=== PATIENT | female | born 1990 | race Caucasian/White ===

== ENCOUNTER → 2023-10-06 | Emergency (ER) | payer OTHER ==
--- OUTSIDE RECORDS SUMMARY | 2023-10-06 18:21 | XMS REPORT | Continuity of Care Document ---
Author Name Unknown Address [address] [facility] [address] [place] [address] [facility] Address [address] [facility] 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 Phone Pcp, Patient Does Not Have A Primary Care Physic robe Chadwick Cosme Attending Clinician [phone] Nasim Parker Attending Clinician NASIM DEL VALLE Attending Clinician Unavailable Provider, [facility] Attending Clinician Un available Payers Payer Name Policy Type Policy Number Effective Date Expirati on Date Source Problems Condition Name Condition Details Condition Category Status Onset Date Resolution Date Last Treatment Date Treating Clinician Comments Source No known active problems No known active problems Disease [facility] Allergies, Adverse Reactions, Alerts Allergy Name Allergy Type Status Severity Reaction(s) Onset Date Inactive Date Treating Clinician Comments Source NO KNOWN ALLERGIE S Drug Class Active [facility] Social History Social Habit Start Date Stop Date Quantity Comments Source History of tobacco use Cigarette Smoker [facility] Exposure to SARS-CoV-2 (event) Not sure [facility] Alcohol intake 2021-07-07 00:00:00 2021-07-07 00:00:00 Current non-drinker of alcohol (finding) [facility] Tobacco use and exposure 2013-04-21 00:00:00 2013-04-21 00:00:00 Never used [facility] Tobacco Comment 2013-04-21 00:00:00 2013-04-21 00:00:00 0-3 cigarettes a day, trying to stop due to . [facility] Sex Ass[birth year] At 1990 00:00:00 1990 00:00:00 [facility] Smoking Status Start Date Stop Date Source Current some day smoker 2013-04-21 00:00:00 [facility] Medications Ordered Medication Name Filled Medication Name Start Date Stop Date Current Medication? Ordering Clinician Indication Dosage Frequency Signature (SIG) Comments Components Source Nitrofurant oin&Nit. Macrocryst (MACROBID) 100 mg capsule 07-07 00:00: 00 07-15 04:59 :00 No [id number] 100mg Take 1 capsule by mouth 2 (two) times daily for 7 days. [facility] amoxicillin 500 mg capsule 10-23 00:00: 00 11-03 05:59 :00 No [id number] 500mg Take 1 capsule by mouth 2 (two) times daily for 10 days. [facility] acute hospital Nitrofurant oin&Nit. Macrocryst (MACROBID) 100 mg capsule 04-24 00:00: 00 Yes 100mg Take 1 Cap by mouth 2 (two) times daily. [facility] Nitrofurant oin&Nit. Macrocryst (MACROBID) 100 mg capsule 04-24 00:00: 00 Yes 100mg Take 1 Cap by mouth 2 (two) times daily. [facility] acute hospital multivitami n ( VITAMIN) tablet 04-21 00:00: 00 Yes [id number] 1{tbl} Take 1 Tab by mouth daily. [facility] acute hospital multivitami n ( VITAMIN) tablet 04-21 00:00: 00 Yes [id number] 1{tbl} Take 1 Tab by mouth daily. [facility] acute [facility] Vital Signs Vital Name Observation Time Observation Value Comments Chris escobar Systolic blood pressure 2021-07-07 23:33:00 116 mm[Hg] [facility] Diastolic blood pressure 2021-07-07 23:33:00 71 mm[Hg] [facility] Heart rate 2021-07-07 23:33:00 94 /min [facility] Body temperature 2021-07-07 23:33:00 36.72 Amee [facility] Respiratory rate 2021-07-07 23:33:00 18 /min [facility] Body height 2021-07-07 23:33:00 160 cm [facility] Body weight 2021-07-07 23:33:00 73.483 kg [facility] BMI 2021-07-07 23:33:00 28.70 kg/m2 [facility] Oxygen saturation in Arterial blood by Pulse oximetry 2021-07-07 23:33:00 98 /min [facility] Systolic blood pressure 2020-10-23 17:02:00 106 mm[Hg] [facility] Diastolic blood pressure 2020-10-23 17:02:00 76 mm[Hg] [facility] Heart rate 2020-10-23 17:02:00 70 [facility] 2020-10-23 17:02:00 36.61 Amee [facility] Respiratory rate 2020-10-23 17:02:00 18 /min [facility] Oxygen saturation in Arterial blood by Pulse oximetry 2020-10-23 17:02:00 98 /min [facility] Procedures Procedure Date / Time Performed Performing Clinicia n Source POCT TEST 2021-07-07 23:45:00 Chadwick Read [facility] POCT GRP A STREP (MOLECULAR) 2020-10-23 17:00:00 Nasim Del Valle [facility] Encounters Start Date/Time End Date/Time Encounter Type Admission Type Attending Clinicians Care Facility Care Department Encounter ID Source 2021-07-07 18:18:31 2021-07-07 18:38:31 Urgent Care Chadwick Read Cathy [facility] [id number] General acute hospital 2021-07-07 18:20:00 2021-07-07 18:20:00 Outpatient R [facility] [id number] General acute hospital 2021-07-07 18:20:00 2021-07-07 18:20:00 Outpatient Chiqui [facility] [id number] General acute hospital 2020-10-23 10:55:30 2020-10-23 11:48:56 Urgent Care Provider, [facility] Urgent Care [facility] [id number] General acute hospital 2020-10-23 10:40:00 2020-10-23 10:40:00 Outpatient Chiqui [facility] [id number] General acute hospital Results Test Description Test Time Test Comments Results Result Co mments [facility]2020-10-23 17:11:00* Test Item Value Reference Range Interpretation Comme nts POCT GP A STREP (test code = 56525-0) Positive Negative - Negative Lab Interpretation (test cod e = [id number]) Abnormal [facility]
--- NOTE | 2023-10-06 18:58 | EDPHYS ---
Physician Documentation [facility] Name: Terra Swan Age: 32 yrs Sex: Female : 1990 Arrival Date: 10/06/2023 Time: 18:18 Bed 10 Private MD: ED Physician Mathew Barr HPI: 10/06 19:17 This 32 yrs old Female presents to ER via Ambulatory with complaints of Knee Pain. sb4 19:18 The patient presents with an injury, pain, that is acute, swelling. The complaints sb4 affect the right knee. Context: The problem was sustained at an unknown site, resulted from a mis-step, the patient can fully bear weight, uses a brace, Problem is a result from a previous injury: Yes. Injury was sustained 2019. Onset: The symptoms/episode began/occurred yesterday. Modifying factors: The symptoms are alleviated by remaining still, the symptoms are aggravated by weight bearing, bending knee. Associated signs and symptoms: The patient has no apparent associated signs or symptoms, Pertinent negatives calf tenderness, numbness, tingling. Treatment prior to arrival includes: no previous treatment. Severity of symptoms: At their worst the symptoms were mild, in the emergency department the symptoms are unchanged. The patient has not recently seen a physician. 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 - Social history:: Smoking status: Patient reports the use of cigarette tobacco products, Reported history of juuling and/or vaping. ROS: 19:18 Constitutional: Negative for fever, chills, and weight loss, sb4 19:18 MS/extremity: Positive for injury or acute deformity, pain, swelling, of the right knee, 19:18 All other systems are negative, Exam: 19:21 Constitutional: This is a well developed, well nourished patient who is awake, alert, sb4 and in no acute distress. Head/Face: Normocephalic, atraumatic. Eyes: Extra-ocular motions intact. Periorbital areas with no swelling, redness, or edema. Skin: Warm, dry with normal turgor. Normal color with no rashes, no lesions, and no evidence of cellulitis. Neuro: Awake and alert, GCS 15, oriented to person, place, time, and situation. Motor strength 5/5 in all extremities. Sensory grossly intact. 19:21 Musculoskeletal/extremity: Circulation is intact in all extremities. Pulses: are normal with no appreciated deficits, Perfusion: the extremity is normally perfused throughout, Sensation intact. Compartment Syndrome exam of affected extremity: is normal. no numbness, no tingling, no sensation deficit, no palor, no weak pulses, Joints: the right knee displays effusion, painful range of motion, swelling, Weight bearing: able to fully bear weight, Calves: are non-tender, have equal circumference, Vital Signs: 18:58 BP 128 / 90; Pulse 92; Resp 17; Pulse Ox 98% ; Weight 83.91 kg; Pain 5/10; ap3 19:30 BP 125 / 84; Pulse 86; Resp 16 S; Pulse Ox 99% on R/A; jw7 18:58 Pain Scale: Adult ap3 MDM: 18:37 Patient medically screened. sb4 19:21 Differential diagnosis: sprain, strain, meniscal injury, ligamentous injury. Data sb4 reviewed: vital signs, nurses notes, and as a result, I will discharge patient. Test considered but Not performed: CT: informed patient we could do xray or CT but it's unlikely we will be able to identify the root cause. she requested MRI, i told her that has to be scheduled on outpatient basis. i provided referrals to orthopedists. i offered analgesics, crutches, knee immobilizer but she refused. Administered Medications: No medications were administered Disposition Summary: 10/06/23 18:57 Discharge Ordered Notes: Location: Home sb4 Problem: new sb4 Symptoms: are unchanged sb4 Condition: Stable sb4 Diagnosis - Pain in right knee sb4 Followup: sb4 - With: Erick Gifford MD - When: As needed - Reason: Further diagnostic work-up, Recheck today's complaints, Re-evaluation by your physician Followup: sb4 - With: Rivera Ortiz MD - When: As needed - Reason: Further diagnostic work-up, Recheck today's complaints, Re-evaluation by your physician Followup: sb4 - With: Asaf Andrew MD - When: As needed - Reason: Further diagnostic work-up, Recheck today's complaints, Re-evaluation by your physician Discharge Instructions: - Discharge Summary Sheet sb4 - Musculoskeletal Pain sb4 - Knee Sprain, Adult, [id number] sb4 Forms: - Work release form jw7 - Medication Reconciliation Form sb4 - Thank You Letter sb4 - Antibiotic Education sb4 - Prescription Opioid Use sb4 - Patient Portal Instructions sb4 - Leadership Thank You Letter sb4 Signatures: Minerva Steven RN RN ap3 Gena Davis PAConstance RANGEL sb4
--- NOTE | 2023-10-06 19:49 | ER ---
Nurse's Notes [facility] Name: Terra Swan Age: 32 yrs Sex: Female : 1990 Arrival Date: 10/06/2023 Time: 18:18 Bed 10 Private MD: Diagnosis: Pain in right knee Presentation: 10/06 18:58 Chief complaint: Patient states: she injured her knee in december of 2019, and never ap3 followed up. patient states she went dancing last night, heard a "pop" and started having a warm pain in the right knee. patient reports pain to be a 5/10 at this time. Coronavirus screen: At this time, the client does not indicate any symptoms associated with coronavirus-19. Ebola Screen: No symptoms or risks identified at this time. Initial Sepsis Screen: Does the patient meet any 2 criteria? No. Patient's initial sepsis screen is negative. Does the patient have a suspected source of infection? No. Patient's initial sepsis screen is negative. Risk Assessment: Do you want to hurt yourself or someone else? Patient reports no desire to harm self or others. Onset of symptoms is unknown. 18:58 Method Of Arrival: Ambulatory ap3 18:58 Acuity: BELINDA 5 ap3 Triage Assessment: 18:59 General: Appears in no apparent distress. Behavior is calm, cooperative, appropriate ap3 for age. Pain: Complains of pain in right knee Pain currently is 5 out of 10 on a pain scale. Neuro: Level of Consciousness is awake, alert, obeys commands, Oriented to person, place, time, situation, Appropriate for age. Cardiovascular: Patient's skin is warm and dry. Respiratory: Airway is patent Respiratory effort is even, unlabored, Respiratory pattern is regular, symmetrical. Musculoskeletal: Reports pain in right knee. 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 - Social history:: Smoking status: Patient reports the use of cigarette tobacco products, Reported history of juuling and/or vaping. Screenin:00 [facility] ED Fall Risk Assessment (Adult) History of falling in the last 3 months, ap3 including since admission No falls in past 3 months (0 pts). Abuse screen: Denies threats or abuse. Nutritional screening: No deficits noted. Tuberculosis screening: No symptoms or risk factors identified. Assessment: 19:00 General: see triage assessment. jw7 19:46 Reassessment: Patient appears in no apparent distress at this time. Patient and/or jw7 family updated on plan of care and expected duration. Pain level reassessed. Patient is alert, oriented x 3, equal unlabored respirations, skin warm/dry/pink. Patient states symptoms have improved. Vital Signs: 18:58 BP 128 / 90; Pulse 92; Resp 17; Pulse Ox 98% ; Weight 83.91 kg; Pain 5/10; ap3 19:30 BP 125 / 84; Pulse 86; Resp 16 S; Pulse Ox 99% on R/A; jw7 18:58 Pain Scale: Adult ap3 ED Course: 18:25 Patient arrived in ED. ts1 18:26 [facility] sb4 18:26 Mathwe Barr MD is Attending Physician. sb4 18:57 Erick Gifford MD is Referral Physician. sb4 18:57 Rivera Ortiz MD is Referral Physician. sb4 18:57 Asaf Andrew MD is Referral Physician. sb4 18:59 Triage completed. ap3 19:00 Arm band placed on right wrist. ap3 19:00 Provided Education on: discharge instructions. ap3 19:00 No provider procedures requiring assistance completed. Patient did not have IV access ap3 during this emergency room visit. 19:01 Patient has correct armband on for positive identification. Call light in reach. Side ap3 rails up X 1. Adult w/ patient. Pulse ox on. NIBP on. Administered Medications: No medications were administered Medication: 19:01 VIS not applicable for this client. ap3 Outcome: 18:57 Discharge ordered by . sb4 19:00 Condition: good ap3 19:48 Discharged to home ambulatory, jw7 19:48 Condition: stable 19:48 Discharge instructions given to patient, 19:48 Patient left the ED. jw7 Signatures: Minerva Steven RN RN ap3 Hortencia Price RN RN jw7 Gena Davis PA-C PA-C sb4 Simpson, Tabitha, PAS PAS ts1
[2023-10-06 21:29] VITALS: BP 125/84; O2SAT 99
== END ==
LOC: ER 18:18
DX: M25.561 Pain in right knee (principal)
CPT/HCPCS: 99283

== ENCOUNTER 2024-01-15 12:59 | Day surgery (SDC) | payer OTHER ==
[2024-01-10 09:45] LABS: Absolute Basophils 0.2 K/uL (0-0.5); Absolute Eosinophils 0.4 K/uL (0-0.5); Absolute Lymphocytes (CBC) 5.4 K/uL (0.7-4.9); Absolute Monocytes 1.4 K/uL (0.1-1.3); Absolute Neutrophil 7.9 K/uL (1.8-8.0); Basophils % 1.1 % (0-1.3); Eosinophils % 2.9 % (0-4.4); Hematocrit 44.2 % (36.0-45.0); Hemoglobin 14.7 g/dL (12.0-15.0); Lymphocytes % 35.1 % (15.3-44.8); MCH 30.6 pg (27.0-35.0); MCHC 33.2 g/dL (32.0-36.0); MCV 92.1 fL (80-100); MPV 7.8 fL (7.6-11.3); Monocytes % 9.1 % (3.3-12.3); Neutrophils % 51.8 % (41.7-73.7); Platelets 331 thou/uL (152-406); RBC Red Blood Cell Count 4.79 M/uL (3.86-4.86); Red Cell Distribution Width 13.3 % (12.1-15.2)
[2024-01-15] MEDS ORDERED: MIDAZOLAM HCL 2 MG/2 ML INJ ONE (14:05)
[2024-01-15] MEDS ORDERED: KETOROLAC 30 MG/ML INJ ONE (14:05)
[2024-01-15] MEDS ORDERED: LIDOCAINE 1% MPF 5 ML VIAL ONE (14:05)
[2024-01-15] MEDS ORDERED: propofoL 200 MG/20 ML VIAL IV ONE (14:05)
[2024-01-15] MEDS ORDERED: ONDANSETRON 4 MG/2 ML VIAL ONE (14:05)
[2024-01-15] MEDS ORDERED: FENTANYL CITR 100 MCG/2 ML ONE ×2 (14:05→15:11)
[2024-01-15] MEDS: Ringers Lactate 1,000 ML IV ONE (14:48)
[2024-01-15] MEDS ORDERED: dexAMETHasone 4 MG/ML VIAL ONE (14:57)
[2024-01-15] MEDS: CEFAZOLIN SODIUM 1 GM/VIAL ONE (15:17)
[2024-01-15 16:45] LABS: Urine Specific Gravity/Preg 1.025 (1.005-1.030)
--- NOTE | 2024-01-15 16:51 | OP ---
Date of Procedure: 01/15/2024 Surgeon: Erick Gifford MD Preoperative Diagnosis: Right knee pain with mechanical symptoms probable meniscal tear or tears. Postoperative Diagnosis: Radial tear of the posterior aspect of the lateral meniscus. Procedure: Right knee arthroscopy with debridement of radial tear of the posterior aspect of the lat eral meniscus. Estimated Blood Loss: Less than 10 cc. Complications: There were no complications. Specimens: No pathology or specimens sent. Indications For Operation: Ms. Swan is a 43-year-old female who came to see me in my office with c omplaints of right knee pain. This failed to improve despite conservative measures and an MRI was do ne, which demonstrated a tear possibly of both the medial and lateral menisci and risks, benefits, an d alternatives to this procedure were discussed with the patient. She states she understands things as presented and wishes to proceed. Description Of Procedure: Patient was taken to the operating room, placed in supine position. Gener al anesthesia was easily obtained by the Anesthesia staff. Following this, well-padded tourniquet wa s placed on superior right thigh. It was not used throughout the case. Right lower extremity was th en prepped and draped in usual sterile fashion. A standard superior medial arthroscopy portal was th en established as a drainage portal with aspiration of scant rather normal-appearing synovial fluid. This was followed by placement of inferolateral arthroscopy portal, which was performed atraumatical ly with 1 pass. The knee was then sequentially examined including suprapatellar pouch, medial and la teral gutters, medial and lateral compartments as well as notch in patellofemoral joint. Pertinent f indings included a tear of the posterior horn of the lateral meniscus which could be displaced within the notch. A standard inferomedial arthroscopy portal was then established using a needle for local ization, and the medial meniscus was then probed in total as there was some suspicion of a medial men iscal tear. However, this was not demonstrated despite vigorous palpation and probing and attention was then turned to the lateral tear. The lateral tear was a large radial tear near the posterior hor n, but did not detach the meniscus. This was debrided back with a combination of hand instruments an d shaver. After this, the remainder of the lateral meniscus was palpated with no further meniscal te ar. The knee was then again examined in all the above areas. No further pathology which was seen am enable to arthroscopic intervention. The inferior arthroscopy portals were then stapled shut. Super ior and medial arthroscopy portal was then used for placement of Marcaine. It was then stapled. The patient was placed in a well-padded sterile dressing, awakened, taken to recovery room in good condi tion. No complications. SE/MODL Voice ID: [id number] Report ID: [id number]
[2024-01-15] MEDS: CODEINE 30MG/APAP 300MG TAB ONE (16:54)
[2024-01-15 18:06] VITALS: BP 111/70; O2SAT 98
[2024-01-15 18:07] VITALS: TEMP 97
== END 2024-01-15 17:10 | disposition home or self-care (01) ==
LOC: OR 12:59
PROVIDERS: ATTEND Orthopaedic Surgery
PROC: 0SBC4ZZ Excision of Right Knee Joint, Percutaneous Endoscopic Approach (ICD-10-PCS; principal; 2024-01-15 13:15)
DX: S83.281D Other tear of lateral meniscus, current injury, right knee, subsequent encounter (principal); S83.241D Other tear of medial meniscus, current injury, right knee, subsequent encounter; M25.561 Pain in right knee; F17.210 Nicotine dependence, cigarettes, uncomplicated; E66.9 Obesity, unspecified; Z68.32 Body mass index [BMI] 32.0-32.9, adult
CPT/HCPCS: 85025; 36415; 81025; 29881; J2704; J1100; J2001; J2250; J3010 ×2; J2405; J7120; J0690